=== PATIENT | female | born 2000 | race Caucasian/White ===

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

== ENCOUNTER 2019-06-29 14:22 | Emergency (ER) | payer OTHER ==
[2019-06-29 14:26] VITALS: TEMP 98; BMI 23.6
--- NOTE | 2019-06-29 15:59 | PDOC ---
History of Present Illness - General Chief Complaint: Pain Stated Complaint: ABD PAIN History Source: Patient Exam Limitations: No Limitations - History of Present Illness Initial Comments: 19 yo F with no past medical history presents with epigastric pain that has been intermittent for 2 months with acute worsening yesterday. Per the patient, she states she has burning pain that radiates to the RUQ and LUQ. She rates the pain as 9/10. Per the patient, there is no association with food types and eating periods with pain. Denies the following: fever, chills, SOB, chest pain, nausea, vomiting, ears/nose/throat pain, dysuria, hematuria, vaginal discharge/ bleeding, diarrhea, and constipation. Allergies: NKDA Past History - Past Medical History Allergies/Adverse Reactions: Allergies Allergy/AdvReac Type Severity Reaction Status Date / Time No Known Allergies Allergy Verified 06/29/19 14:26 Home Medications: Ambulatory Orders Famotidine [Pepcid] 20 mg PO DAILY #14 tablet 06/29/19 COPD: No - Psycho Social/Smoking Cessation Hx Smoking History: Never smoked Hx Alcohol Use: No Drug/Substance Use Hx: No Substance Use Type: None Review of Systems - Review of Systems Able to Perform ROS?: Yes Is the patient limited Citizen Of [place] proficient: No Constitutional: No: Chills, Diaphoresis, Fever, Weakness HEENTM: No: Eye Pain, Ear Pain, Nose Pain, Throat Pain, Mouth Pain Respiratory: No: Cough, Shortness of Breath, Hemoptysis Cardiac (ROS): No: Chest Pain, Lightheadedness, Palpitations, Syncope, Chest Tightness ABD/GI: Yes: Abdominal cramping. No: Constipated, Diarrhea, Nausea, Rectal Bleeding, Vomiting, Tarry Stools : No: Burning, Dysuria, Hematuria Musculoskeletal: No: Back Pain, Joint Pain, Neck Pain Integumentary: No: Bruising, Erythema, Rash Neurological: No: Headache, Numbness, Tingling, Tremors Psychiatric: No: Change in Appetite Endocrine: No: Unexplained Weight Gain Hematologic/Lymphatic: No: Anemia *Physical Exam - Vital Signs Last Vital Signs Temp Pulse Resp BP Pulse Ox 98 F 81 18 117/57 L 100 06/29/19 14:24 06/29/19 14:24 06/29/19 14:24 06/29/19 14:24 06/29/19 14:24 - Physical Exam General Appearance: Yes: Nourished, Appropriately Dressed. No: Apparent Distress, Intoxicated HEENT: positive: EOMI, HARRIET, Normal Voice, Symmetrical, Pharynx Normal, Hearing Grossly Normal. negative: Pale Conjunctivae, Scleral Icterus (R), Scleral Icterus (L), Muffled/Hoarse voice, Pharyngeal Erythema, Tonsillar Exudate, Tonsillar Erythema, Nasal Congestion, Rhinorrhea, Sinus Tenderness, Excessive drooling Neck: positive: Trachea midline, Supple. negative: Tender, Lymphadenopathy (R) , Lymphadenopathy (L), Tender lateral, Tender midline Respiratory/Chest: positive: Lungs Clear, Normal Breath Sounds. negative: Chest Tender, Respiratory Distress, Accessory Muscle Use, Rhonchi, Stridor, Wheezing Cardiovascular: positive: Regular Rhythm, Regular Rate, S1, S2. negative: Systolic Murmur Gastrointestinal/Abdominal: positive: Normal Bowel Sounds, Tender (RUQ, epigastric region. no rebound), Flat, Soft. negative: Distended, Guarding, Rebound Lymphatic: negative: Adenopathy Musculoskeletal: positive: Normal Inspection. negative: CVA Tenderness, Vertebral Tenderness Extremity: positive: Normal Capillary Refill, Normal Inspection, Normal Range of Motion. negative: Tender, Swelling, Calf Tenderness Integumentary: positive: Normal Color, Dry, Warm. negative: Swelling, Ecchymosis Neurologic: positive: transit manager II-XII NML intact, Fully Oriented, Alert, Normal Mood/ Affect ED Treatment Course - LABORATORY CBC & Chemistry Diagram: 06/29/19 18:00 06/29/19 18:00 Medical Decision Making - Medical Decision Making 19 yo F with no past medical history presents with epigastric pain that has been intermittent for 2 months with acute worsening yesterday. Per the patient, she states she has burning pain that radiates to the RUQ and LUQ. initial vitals: Initial Vital Signs Temp Pulse Resp BP Pulse Ox 98 F 81 18 117/57 L 100 06/29/19 14:24 06/29/19 14:24 06/29/19 14:24 06/29/19 14:24 06/29/19 14:24 Work up: ddx: gastritis vs GERD vs cholelithiasis vs cholecystitis vs pancreatitis Laboratory Tests 06/29/19 06/29/19 06/29/19 18:00 18:00 19:30 WBC 9.4 RBC 4.50 Hgb 13.5 Hct 39.2 MCV 87.2 MCH 30.0 MCHC 34.4 RDW 13.1 Plt Count 337 D MPV 7.9 Absolute Neuts (auto) 6.1 Neutrophils % 65.6 Lymphocytes % 31.0 Monocytes % 2.5 L Eosinophils % 0.7 Basophils % 0.2 Nucleated RBC % 0 Sodium 139 Potassium 3.9 Chloride 107 Carbon Dioxide 28 Anion Gap 4 L BUN 7.8 Creatinine 0.4 L Est GFR (CKD-EPI)AfAm 172.56 Est GFR (CKD-EPI)NonAf 148.89 Random Glucose 85 Calcium 10.9 H Total Bilirubin 0.3 AST 15 ALT 20 Alkaline Phosphatase 69 Total Protein 7.9 Albumin 4.3 Lipase 131 Beta HCG, Quant < 1.0 Urine Color Yellow Urine Appearance Clear Urine pH 7.0 Ur Specific [place] 1.013 Urine Protein Negative Urine Glucose (UA) Negative Urine Ketones Trace H Urine Blood Trace Urine Nitrite Negative Urine Bilirubin Negative Urine Urobilinogen 0.2 Ur Leukocyte Esterase Negative Urine WBC (Auto) 4 Urine RBC (Auto) 2 Urine Casts (Auto) 0 U Epithel Cells (Auto) 2.4 Urine Bacteria (Auto) 68.8 bhcg is negative lipase negative POCUS shows Discharge - Discharge Information Problems reviewed: Yes Clinical Impression/Diagnosis: Gastritis, Cholelithiasis Condition: Stable Disposition: HOME - Additional Discharge Information Prescriptions: Famotidine [Pepcid] 20 mg PO DAILY #14 tablet - Follow up/Referral Referrals: Diandra Gonzales MD [Primary Care Provider] - Cortez Villagomez MD [Staff Physician] - - Patient Discharge Instructions Additional Instructions: you were seen in the emergency department for the evaluation of your epigastric pain, which is pain in the stomach area. You were found to have cholelithiasis which is a stone in your gallbladder. Please follow up with your primary care doctor within 1 week after discharge for follow up care and management. Please follow with the surgeon referred to you within 1 week after discharge. Please retrn to the emergency department if you have worsening symptoms or new concerning symptoms such as fevers, nausea vomiting, and worsening flank pain. Thank you. You have been prescribed pepcid, please take as directed - Post Discharge Activity
[2019-06-29] MEDS ORDERED: ACETAMINOPHEN 1000 MG/100 ML VIAL (NON FORMULARY) IVPB ONE (16:28)
[2019-06-29] MEDS ORDERED: FAMOTIDINE 20 MG/50 ML IVPB 20 MG/50 ML MG IVPB ONE ×2 (16:28→20:00)
[2019-06-29] MEDS ORDERED: SODIUM CHLORIDE 1,000 ML IV STA (16:28)
[2019-06-29] MEDS ORDERED: MAG HYDROX/AL HYDROX/SIMETH 30 ML UNIT-DOSE CUP PO ONE (18:13)
--- NOTE | 2019-06-29 18:41 | PDOC ---
Documentation entered by Darlene Pool SCRIBE, acting as scribe for Inez Sal MD. Inez Sal MD: This documentation has been prepared by the Yrn quiroz Nirvannie, SCRIBE, under my direction and personally reviewed by me in its entirety. I confirm that the documentation accurately reflects all work, treatment, procedures, and medical decision making performed by me. Attending Attestation - Resident Resident Name: Leon Oshea - ED Attending Attestation I have performed the following: I have examined & evaluated the patient, The case was reviewed & discussed with the resident, I agree w/resident's findings & plan, Exceptions are as noted - HPI HPI: 06/29/19 17:15 The patient is a 19 year old female with no significant past medical history, who presents to the emergency department with 2 months of worsening epigastric abdominal pain. She denies recent dysuria, frequency, urgency or hematuria. Allergies: NKDA Primary Care Physician: MOI Thalappillil - Physicial Exam PE: 06/29/19 18:37 Slender 19-year-old female presents with intermittent epigastric pain for the past several months that worsened today She does not have any active vomiting fever or chills Head is normocephalic atraumatic Neck is supple Lungs are clear to auscultation bilaterally CVS is regular rate and rhythm S1-S2 Abdomen epigastric discomfort to deep palpation but no rebound or guarding No flank pain Skin warm and dry Extremities full range of motion, no deformities, no erythema Neuro alert and oriented x3, ambulating with ease, no gross focal neuro deficits - Medical Decision Making 06/29/19 20:42 Gallbladder ultrasound did show some mobile stones but no other findings consistent with acute cholecystitis LFTs were within normal limits, normal glucose normal electrolytes, normal CBC and no anemia Patient symptoms resolved Patient was told that she has recurrent symptoms she should see a surgeon to have her gallbladder removed Diet instructions were to avoid fatty or fried foods impression cholelithiasis, epigastric pain
[2019-06-29 18:42] LABS: BASO % 0.2 % (0-2.0); EOS % 0.7 % (0-4.5); HEMATOCRIT 39.2 % (32.4-45.2); HEMOGLOBIN 13.5 GM/dL (10.7-15.3); MCHC 34.4 g/dl (32.0-36.0); MEAN CELL VOLUME 87.2 fl (80-96); MEAN PLT VOLUME 7.9 fl (7.5-11.1); MONO % 2.5 % (3.8-10.2); NEUT % 65.6 % (42.8-82.8); PLATELET COUNT 337 K/MM3 (134-434); RDW 13.1 % (11.6-15.6); WHITE BLOOD COUNT 9.4 K/mm3 (4.0-10.0)
[2019-06-29 18:48] LABS: ALBUMIN 4.3 g/dl (3.4-5.0); ALK PHOS 69 U/L (45-117); ANION GAP 4 MMOL/L (8-16); BILIRUBIN,TOTAL 0.3 mg/dL (0.2-1); BLOOD UREA NITROGEN 7.8 mg/dL (7-18); CALCIUM 10.9 mg/dL (8.5-10.1); CHLORIDE 107 mmol/L (98-107); CO2 28 mmol/L (21-32); CREATININE 0.4 mg/dL (0.55-1.3); GLUCOSE,RANDOM 85 mg/dL (74-106); POTASSIUM 3.9 mmol/L (3.5-5.1); SGOT/AST 15 U/L (15-37); SGPT/ALT 20 U/L (13-61); SODIUM 139 mmol/L (136-145); TOT PROT 7.9 g/dl (6.4-8.2)
[2019-06-29 19:14] LABS: LIPASE 131 U/L (73-393)
[2019-06-29] MEDS ORDERED: SUCRALFATE 1 GM TABLET (FP) ONE (20:00)
[2019-06-29] MEDS ORDERED: MAG HYDROX/AL HYDROX/SIMETH 30 ML UNIT-DOSE CUP ONE (20:00)
[2019-06-29] MEDS ORDERED: SUCRALFATE 1 GM TABLET (FP) PO ONE ×2 (20:00→22:00)
[2019-06-29 20:28] LABS: EPI CELLS 2.4 /HPF (0-5/HPF); HYALINE CASTS 0 /lpf (0-8); URINE APPEARANCE CLEAR; URINE BACTERIA 68.8 /hpf (NEGATIVE); URINE BILIRUBIN NEGATIVE (NEGATIVE); URINE COLOR YELLOW; URINE GLUCOSE (UA) NEGATIVE (NEGATIVE); URINE KETONE TRACE (NEGATIVE); URINE LEUK ESTERASE NEGATIVE (NEGATIVE); URINE NITRITE NEGATIVE (NEGATIVE); URINE PROTEIN NEGATIVE (NEGATIVE); URINE RBC 2 /hpf (0-4); URINE UROBILINOGEN 0.2 mg/dL (0.2-1.0); URINE WBC 4 /hpf (0-5)
[2019-06-29 21:22] VITALS: BP 110/68; PULSE 85
== END 2019-06-29 21:15 | disposition home or self-care (01) ==
LOC: JER 14:22
PROC: 3E033GC Introduction of Other Therapeutic Substance into Peripheral Vein, Percutaneous Approach (ICD-10-PCS; principal; 2019-06-29)
PROC: 3E033NZ Introduction of Analgesics, Hypnotics, Sedatives into Peripheral Vein, Percutaneous Approach (ICD-10-PCS; 2019-06-29)
DX: K29.70 Gastritis, unspecified, without bleeding (principal); K80.20 Calculus of gallbladder without cholecystitis without obstruction
CPT/HCPCS: 36415; 76705-TC; 80053; 81003; 83690; 84702; 85025; 87086; 96365; 96375; 99283-25; J0131; J7030

== ENCOUNTER 2020-02-16 04:43 | Day surgery (SDC) | payer OTHER ==
[2020-02-15 12:25] VITALS: BMI 21.9
--- NOTE | 2020-02-16 12:30 | HP ---
History & Physical Update - History History: No Change - Physical Physical: No Change - Assessment Assessment: No Change - Plan Plan: No Change (for lap leonidas possible open ; r/b/t/a/'s d/w the patient pre-op and informed consent obtained.)
[2020-02-16] MEDS ORDERED: LIDOCAINE HCL 2% JELLY (5 ML/TUBE) ONE (12:48)
[2020-02-16] MEDS ORDERED: LIDOCAINE HCL/PF 2% SDV 5ML VIAL ONE (12:48)
[2020-02-16] MEDS ORDERED: fentaNYL CITRATE 250 MCG/5 ML VIAL ONE (12:48)
[2020-02-16] MEDS ORDERED: ceFAZolin SODIUM 1 GM VIAL ONE (12:48)
[2020-02-16] MEDS ORDERED: DEXAMETHASONE SOD PHOSPHATE 4 MG/1 ML VIAL ONE (12:48)
[2020-02-16] MEDS ORDERED: ROCURONIUM BROMIDE 50 MG/5 ML SYRINGE ONE (12:48)
[2020-02-16] MEDS ORDERED: GLYCOPYRROLATE 0.2 MG/1 ML VIAL ONE (12:48)
[2020-02-16] MEDS ORDERED: MIDAZOLAM HCL 2 MG/2 ML SINGLE DOSE VIAL ONE (12:49)
[2020-02-16] MEDS ORDERED: PROPOFOL 20 ML ONE ×2 (12:49)
[2020-02-16] MEDS ORDERED: oxyCODONE HCL 5 MG TABLET PO PRN ×2 (13:31)
[2020-02-16] MEDS ORDERED: ONDANSETRON 4 MG/2 ML VIAL IVPUSH PRN (13:31)
[2020-02-16] MEDS ORDERED: ceFAZolin SODIUM 1 GM VIAL IVPB ONE (13:32)
[2020-02-16] MEDS ORDERED: BUPIVACAINE HCL/PF 0.5% (5 MG/ML) 30 ML VIAL IJ ONE (13:33)
[2020-02-16] MEDS ORDERED: LACTATED RINGERS SOLUTION 1,000 ML IV SCH (13:45)
[2020-02-16] MEDS ORDERED: NEOSTIGMINE METHYLSULFATE 0.5 MG/ML - 10 ML MDV ONE (14:17)
--- NOTE | 2020-02-16 14:54 | OP ---
Operative Note - Note: Operative Date: 02/16/20 Pre-Operative Diagnosis: Chronic cholecystitis, cholelithiasis Operation: Laprascopic cholecystectomy Post-Operative Diagnosis: Same as Pre-op Surgeon: Cortez Villagomez Tree Deadener: Darius Moeller Anesthesiologist/DISHWASHING MACHINE REPAIRER: Patsy Sanches Anesthesia: General Specimens Removed: Gallbladder Estimated Blood Loss (mls): 20 Fluid Volume Replaced (mls): 1,000 Operative Report Dictated: Yes
--- NOTE | 2020-02-16 14:55 | SURG ---
Surgery Processor Solid Propellant Note Processor Solid Propellant: Darius Moeller PA-C Date of Service: 02/16/20 Diagnosis: Chronic cholecystitis; Cholelithiasis I was present for the entirety of the operative procedure. For further detail, please refer to operative report. Visit type - Case Type Case Type: Scheduled - New patient This patient is new to me today: Yes Date on this admission: 02/16/20
[2020-02-16] MEDS ORDERED: oxyCODONE HCL 5 MG TABLET ONE (16:46)
[2020-02-16 18:06] VITALS: BP 106/55; PULSE 73; TEMP 98.2
--- NOTE | 2020-02-18 10:56 | OP ---
DATE OF OPERATION: 02/16/2020 PREOPERATIVE DIAGNOSIS: Chronic cholecystitis and cholelithiasis. POSTOPERATIVE DIAGNOSIS: Chronic cholecystitis and cholelithiasis. PROCEDURE: Laparoscopic cholecystectomy. SURGEON: Cortez Villagomez MD PNEUDRAULIC SYSTEMS MECHANIC: Darius Moeller PA-C ANESTHESIA: General. OPERATIVE FINDINGS: Cholelithiasis and chronic cholecystitis. The rest of the findings are unremarkable. DESCRIPTION OF PROCEDURE: The patient was placed on the operating room table in supine position. After the induction of general anesthesia, the patient's abdomen was prepped with ChloraPrep and draped in sterile fashion. Time-out was taken and then pneumoperitoneum established above the umbilicus using a Veress needle. Once 15 mm of intra-abdominal pressure was obtained, a 5-mm port was placed at the umbilicus. Additional lateral 5-mm ports and a subxiphoid 12-mm port were placed and laparoscopy carried out, and the previously noted findings were observed. The gallbladder was placed on cephalad and lateral traction, and dissection was begun at the neck of the gallbladder where the peritoneum was opened medially and laterally using blunt and sharp dissection and electrocautery. Dissection continued in the triangle of Calot where the cystic duct was identified coursing from the neck of the gallbladder distally to the common bile duct. It was dissected proximally and distally for length. Similarly, the artery was similarly identified and dissected. A critical view of safety was taken, and then the cystic duct divided proximally and distally using Endo Marie after it was clipped twice proximally and distally with large hemoclips. The artery was similarly clipped and divided. Hemostasis was checked for and noted to be good and then the gallbladder was removed from the liver bed in a retrograde fashion using electrocautery. Prior to removal from the edge of the liver, hemostasis was again verified and then the gallbladder removed from the edge of the liver, placed in an EndoCatch, and brought out through the subxiphoid port. Pneumoperitoneum was reestablished, hemostasis verified again, and then the 5-mm lateral and subxiphoid ports were removed under laparoscopic vision without evidence of bleeding from the port sites. The umbilical port was removed and the pneumoperitoneum evacuated. All port sites were infiltrated with 0.5% Marcaine and the skin edges closed with 4-0 Biosyn in a subcuticular and continuous fashion. Steri-Strips and Band-Aid dressings were placed and the procedure terminated at this point and the patient aroused from general anesthesia and transferred to the post anesthesia care unit in stable condition awake and alert. ESTIMATED BLOOD LOSS: 20 mL. REPLACEMENTS: Crystalloid. DRAINS: None. SPECIMENS: Gallbladder and contents to Pathology. I, Cortez Villagomez, was physically present in the operating room from the time the patient was placed on the operating room table until she was transferred to the post anesthesia care unit in my accompaniment. MD ANABELLA Abbott/[id number] MTDD
--- NOTE | 2020-02-18 14:45 | PATH ---
Surgical Pathology Report Patient Name: RANI BARNHART [facility]. Rec. #: [id number] /Age/Gender: 2000 (Age: 19) / F Account: [id number] Location: [facility] SURGICAL Taken: 02/16/2020 Received: 02/17/2020 Reported: 02/18/2020 Physicians: Cortez Villagomez MD Specimen(s) Received GALLBLADDER Clinical History Chronic cholecystitis and chronic cholelithiasis Final Diagnosis GALLBLADDER, CHOLECYSTECTOMY: CHRONIC CHOLECYSTITIS AND CHOLELITHIASIS. Electronically Signed Angie Sheffield M.D. Gross Description Received in formalin, labeled "gallbladder," is a 6.4 x 2.7 x 2.5 cm. gallbladder with a 0.2 cm. in length portion of cystic duct attached. The outer surface is pantoja george and varies from smooth to shaggy. The lumen contains pantoja, tenacious bile as well as abundant yellow, irregular to fragmented choleliths ranging from 0.1-3.0 cm in greatest dimension. The mucosa is pantoja-brown with focal erosions. The wall of the gallbladder ranges from 0.1-0.2 cm. in thickness. [employer] Professional sections are submitted in one cassette. /02/17/2020 saudi02/17/2020
== END 2020-02-16 18:30 | disposition home or self-care (01) ==
LOC: JASU-SURG 04:43
PROVIDERS: ATTEND Surgery
PROC: 0FT44ZZ Resection of Gallbladder, Percutaneous Endoscopic Approach (ICD-10-PCS; principal; 2020-02-16 12:00)
DX: K80.10 Calculus of gallbladder with chronic cholecystitis without obstruction (principal)
CPT/HCPCS: 84703; 88304-TC; 94760

== ENCOUNTER 2022-09-03 13:12 | Emergency (ER) | payer OTHER ==
[2022-09-03 13:49] VITALS: BP 111/55; PULSE 107; RESP 16; TEMP 98.6; BMI 17.7
[2022-09-03 15:17] LABS: BASO % 0.3 % (0-2.0); EOS % 0.4 % (0-4.5); HEMATOCRIT 35.9 % (32.4-45.2); HEMOGLOBIN 12.4 GM/dL (10.7-15.3); LYMPH % 32.8 % (8-40); MCH 29.6 pg (25.7-33.7); MCHC 34.6 g/dl (32.0-36.0); MEAN CELL VOLUME 85.5 fl (80-96); MEAN PLT VOLUME 7.6 fl (7.5-11.1); MONO % 3.5 % (3.8-10.2); PLATELET COUNT 318 10^3/uL (134-434); RDW 13.1 % (11.6-15.6)
[2022-09-03 15:26] LABS: HCG,QUALITATIVE URINE Negative
[2022-09-03 15:44] LABS: CALCIUM 10.3 mg/dL (8.5-10.1); EPI CELLS 31 /uL (0-25.1); HYALINE CASTS 0 /uL (0-3.1); PH,URINE 6.5 (5.0-8.0); URINE APPEARANCE CLEAR; URINE BACTERIA 464 /uL (0-1359); URINE BILIRUBIN NEGATIVE (NEGATIVE); URINE COLOR YELLOW; URINE GLUCOSE (UA) NEGATIVE (NEGATIVE); URINE KETONE 1+ (NEGATIVE); URINE LEUK ESTERASE TRACE (NEGATIVE); URINE NITRITE NEGATIVE (NEGATIVE); URINE PROTEIN NEGATIVE (NEGATIVE); URINE RBC 20 /uL (0-23.9); URINE UROBILINOGEN 0.2 mg/dL (0.2-1.0); URINE WBC 23 /uL (0-25.8)
[2022-09-03 15:45] LABS: ALBUMIN 3.8 g/dl (3.4-5.0); BLOOD UREA NITROGEN 9.8 mg/dL (7-18)
[2022-09-03 15:48] LABS: CREATININE 0.4 mg/dL (0.55-1.3)
[2022-09-03 15:49] LABS: BILIRUBIN,TOTAL 0.8 mg/dL (0.2-1); TOT PROT 7.4 g/dl (6.4-8.2)
[2022-09-03] MEDS ORDERED: MAG HYDROX/AL HYDROX/SIMETH 30 ML UNIT-DOSE CUP PO ONE (15:53)
[2022-09-03] MEDS ORDERED: FAMOTIDINE 20 MG TABLET PO ONE (15:54)
[2022-09-03] MEDS ORDERED: ONDANSETRON 4 MG TABLET PO ONE ×2 (15:55→15:59)
[2022-09-03] MEDS ORDERED: FAMOTIDINE 20 MG TABLET ONE (16:00)
[2022-09-03] MEDS ORDERED: MAG HYDROX/AL HYDROX/SIMETH 30 ML UNIT-DOSE CUP ONE (16:01)
== END 2022-09-03 16:25 | disposition home or self-care (01) ==
LOC: JERFT 13:12
DX: R11.2 Nausea with vomiting, unspecified (principal)
CPT/HCPCS: 36415; 80053; 81003; 84703; 85025; 87086; 99283-25